=== PATIENT | female | born 1950 | race Caucasian/White ===

== ENCOUNTER 2017-09-02 19:45 | Inpatient (IN) | payer OTHER ==
[~2017-09-02] VITALS: Ht 165.1 cm; Wt 135.6 kg
[2017-09-02 20:28] LABS: BASOPHIL (%) 0.2 % (0-1); EOSINOPHIL (%) 0.7 % (0-5); EOSINOPHIL COUNT 0.1 K/uL (0-0.3); HEMATOCRIT 45.4 % (36.0-46.0); HEMOGLOBIN 14.7 G/DL (11.9-15.5); IMMATURE GRANULOCYTE (%) 0.3 % (0.0-0.7); LYMPHOCYTE (%) 10.9 % (15-42); LYMPHOCYTE COUNT 1.6 K/uL (1.0-2.8); MCH 30.3 PG (29.0-34.0); MCHC 32.4 G/DL (30.0-36.0); MCV 93.6 FL (83-99); MONOCYTE (%) 8.3 % (3-12); MONOCYTE COUNT 1.2 K/uL (0-0.8); NEUTROPHIL (%) 79.6 % (45-76); NEUTROPHIL COUNT 11.4 K/uL (1.8-6.4); PLATELET COUNT 199 K/uL (156-360); RBC DIS.WIDTH-CV 14.6 % (11.8-14.6); RBC DIS.WIDTH-SD 50.5 % (39-53); RED BLOOD COUNT 4.85 M/uL (3.80-5.20); WHITE BLOOD COUNT 14.3 K/uL (4.1-10.2)
[2017-09-02 20:35] LABS: PTT 37.9 SEC (25-37)
[2017-09-02 20:38] LABS: AMYLASE 28 IU/L (1-118); CHLORIDE 105 mEq/L (99-109); POTASSIUM 4.5 mEq/L (3.7-5.4); SODIUM 142 mEq/L (136-147)
[2017-09-02 20:40] LABS: GLUCOSE 257 mg/dL (70-99)
[2017-09-02 20:43] LABS: SERUM ETHYL ALCOHOL < 10 mg/dL
[2017-09-02 20:44] LABS: CREATININE 1.1 mg/dL (0.6-1.3); GFR ESTIMATE (CALCULATED) 52 mL/min/
[2017-09-02 20:45] LABS: UREA NITROGEN (BUN) 19 mg/dL (9-23)
[2017-09-02 20:47] LABS: LIPASE 16 U/L (1.0-51.0)
[2017-09-02 21:37] LABS: THYROTROPIN (TSH) 3.6 MIU/L (0.4-5.5)
[2017-09-02] MEDS ORDERED: ZOLOFT100 MG PO (23:20)
[2017-09-02] MEDS ORDERED: ZOCOR40 MG PO (23:21)
[2017-09-02] MEDS ORDERED: AMARYL1 MG PO (23:21)
[2017-09-02] MEDS ORDERED: COZAAR50 MG PO (23:21)
[2017-09-02] MEDS ORDERED: COUMADIN4 MG PO (23:21)
[2017-09-02] MEDS ORDERED: NEURONTIN600 MG PO (23:22)
[2017-09-02] MEDS ORDERED: ULTRAM50 MG PO (23:22)
[2017-09-02] MEDS ORDERED: ATIVAN0.5 MG PO (23:22)
[2017-09-02] MEDS ORDERED: SENNA8.6 MG PO (23:23)
[2017-09-02] MEDS ORDERED: TYLENOL EXTRA500 MG PO (23:23)
[2017-09-02] MEDS ORDERED: SYMBICORT60 INHALAT IH (23:24)
[2017-09-03 01:12] LABS: APPEARANCE CLEAR ((CLEAR)); BILIRUBIN NEGATIVE; BLOOD NEGATIVE; COLOR YELLOW ((YELLOW)); GLUCOSE (STRIP) 50; KETONES NEGATIVE; LEUKOCYTES TRACE; NITRITE NEGATIVE; PROTEIN (STRIP) 30; SPECIFIC GRAVITY 1.054 (1.000-1.030); UROBILINOGEN 0.2 MG/DL (0.2-1.0)
[2017-09-03 01:19] LABS: BACTERIA RARE /HPF; EPITHELIAL CELLS RARE /HPF; MUCUS TRACE /LPF; RED BLOOD CELLS 0-5 /HPF (0-5); UCUL ADDED? NO; WHITE BLOOD CELLS 0-5 /HPF (0-5)
[2017-09-03 01:49] LABS: AMPHETAMINE NEGATIVE (500 ng/mL); BARBITURATES NEGATIVE (200 ng/mL); BENZODIAZEPINES NEGATIVE (150 ng/mL); BUPRENORPHINE NEGATIVE (10 ng/mL); COCAINE NEGATIVE (150 ng/mL); METHADONE NEGATIVE (200 ng/mL); METHAMPHETAMINE NEGATIVE (500 ng/mL); OPIATES (MORPHINE) NEGATIVE (100 ng/mL); OXYCODONE NEGATIVE (100 ng/mL); PHENCYCLIDINE NEGATIVE (25 ng/mL); PROPOXYPHENE NEGATIVE (300 ng/mL); THC CANNABINOIDS NEGATIVE (50 ng/mL); TRICYCLIC ANTIDEPRESSANTS NEGATIVE (300 ng/mL)
[2017-09-03 02:32] VITALS: BP 150/61
[2017-09-03 07:23] LABS: TROP-I INTERPRETATION NEGATIVE; TROPONIN-I 0.23 ng/mL (0.0-0.30)
[2017-09-03 08:08] VITALS: BP 138/74
[2017-09-03 09:50] LABS: INTER. NORMALIZED RATIO 2.1
[2017-09-03 11:42] VITALS: BP 165/95
[2017-09-03 12:14] LABS: GLUCOSE 267 mg/dL (70-99)
[2017-09-03 15:59] VITALS: BP 153/65
[2017-09-03 19:17] VITALS: BP 118/58
[2017-09-03 23:59] VITALS: BP 136/61
[2017-09-04 05:00] VITALS: BP 150/69
== END 2017-09-04 06:50 | disposition short-term general hospital (02) | DRG 309 ==
LOC: EME → EDBD 19:45 → EDOF 09-03 00:48 → 4EAST 09-03 00:48 → ENRESERV 09-03 00:50 → 4EAST 09-03 02:16
PROVIDERS: Emergency Medicine; Hospitalist; Internal Medicine; Internal Medicine Cardiovascular Disease
DX: I44.1 Atrioventricular block, second degree (principal); J44.1 Chronic obstructive pulmonary disease with (acute) exacerbation; S06.0X9A Concussion with loss of consciousness of unspecified duration, initial encounter; S00.03XA Contusion of scalp, initial encounter; W07.XXXA Fall from chair, initial encounter; Y92.000 Kitchen of unspecified non-institutional (private) residence as the place of occurrence of the external cause; E87.2 Acidosis; E11.9 Type 2 diabetes mellitus without complications; I10 Essential (primary) hypertension; D72.829 Elevated white blood cell count, unspecified; E78.5 Hyperlipidemia, unspecified; E66.9 Obesity, unspecified; Z68.42 Body mass index [BMI] 45.0-49.9, adult; F17.200 Nicotine dependence, unspecified, uncomplicated; Z86.718 Personal history of other venous thrombosis and embolism; Z79.01 Long term (current) use of anticoagulants; Z79.51 Long term (current) use of inhaled steroids; Z79.84 Long term (current) use of oral hypoglycemic drugs
CPT/HCPCS: 70450; 71260; 72125; 74177; 80048; 81003; 82150; 82800; 82948; 83690; 83930; 84443; 84484; 84999; 85025; 85610; 85730; 86850; 86900; 86901; 93005; 93306; 94640; 94760; 94799; 99281; 99285; G0480; J1200; J2405; J2920; J2930; J3010; J7040; S0028